=== PATIENT | male | born 1980 | race Caucasian/White ===

== ENCOUNTER 2017-01-03 08:15 | Emergency (ER) | END 2017-01-03 08:53 | disposition home or self-care (01) | DX: B02.9 Zoster without complications (principal) ==

== ENCOUNTER 2017-01-20 06:16 | Emergency (ER) | payer MEDICAID ==
[~2017-01-20] VITALS: Wt 71.0 kg
[~2017-01-20 06:16] MED LIST: ACYC800T57 PO; BEN25 PO; HYDR-906 PO; IBUP-1542 PO
[2017-01-20] MEDS ORDERED: TRAM50TA2 PO (07:05)
[2017-01-20] MEDS ORDERED: HYDR-842 PO (07:05)
--- NOTE | 2017-01-20 07:37 | ERD ---
ER Documentation Chief Complaint Date/Time DATE: 01/20/17 TIME: 07:35 Chief Complaint SHINGLES ON LEFT SIDE OF BODY HPI 36-year-old male recently diagnosed with shingles about 2 weeks ago comes emergency department with continuing pain as well as itching. Patient states that he did complete the medications however the area is very sensitive when he wears clothing, there is also some itching associated. He denies any fevers, chills or drainage. ROS All systems reviewed and are negative except as per history of present illness. Medications Home Meds Active Scripts Tramadol HCl (Tramadol HCl) 50 Mg Tablet, 50 MG PO Q4 Y for PAIN, #20 TAB Prov:SHAYNA SERRATO PA-C 01/20/17 Hydroxyzine Hcl* (Atarax*) 25 Mg Tab, 25 MG PO Q6H Y for ITCHING, #30 TAB Prov:SHAYNA SERRATO PA-C 01/20/17 Ibuprofen* (Motrin*) 600 Mg Tab, 600 MG PO Q6, #30 TAB Prov:JAYJAY FELIX 01/03/17 Diphenhydramine Hcl* (Benadryl*) 25 Mg Cap, 25 MG PO Q6, #30 CAP Prov:JAYJAY FELIX 01/03/17 Hydrocodone/Acetaminophen ([place] 5-325 Tablet) 1 Each Tablet, 1 TAB PO Q6H Y for PAIN, #20 TAB Prov:JAYJAY FELIX 01/03/17 Acyclovir* (Zovirax*) 800 Mg Tablet, 800 MG PO 5 TIMES DAILY for 7 Days, TAB Prov:JAYJAY FELIX 01/03/17 Allergies Allergies: Coded Allergies: No Known Allergy (Unverified , 01/03/17) PMhx/Soc Medical and Surgical Hx: pt denies Medical Hx, pt denies Surgical Hx Hx Alcohol Use: No Hx Substance Use: No Hx Tobacco Use: No Physical Exam Vitals Vital Signs Date Time Temp Pulse Resp B/P Pulse Ox O2 Delivery O2 Flow Rate FiO2 01/20/17 06:33 98.0 78 18 146/102 98 Physical Exam General: Well-developed, well-nourished. The patient appears in no acute distress. HEENT: Head is normocephalic, atraumatic. No scleral icterus. Neck: Supple. Nontender. Lungs: Clear to auscultation. Normal air movement. Heart: Regular rate and rhythm. S1 and S2 are normal. No murmurs, gallops, or rubs. Abdomen: Nondistended. Extremities: No clubbing or cyanosis. Moving extremities x 4. No weakness. Neurologic: Alert and oriented 3. No focal deficits. Normal speech and gait. Skin: Linear rash that is across the chest on the left side, it is flattened, crusted over, with scabs, also on the left side of the back posteriorly. It does not cross midline. No drainage, no surrounding erythema. Areas dry. Procedures/MDM 36-year-old male presents with shingles, it is been approximately 2 weeks, consistent with his rash and normal presentation. There is no secondary cellulitis, no signs of acute coronary syndrome, dissection or pulmonary embolus. He was counseled that this pain could last up to 3 months or longer, this is normal. He does not show any signs of infection, and he was reassured that this is within normal limits. He will be given medication for symptomatic control. Departure Diagnosis: Primary Impression: Shingles Condition: Good Patient Instructions: Shingles (Herpes Zoster) Referrals: [facility] YOU HAVE RECEIVED A MEDICAL SCREENING EXAM AND THE RESULTS INDICATE THAT YOU DO NOT HAVE A CONDITION THAT REQUIRES URGENT TREATMENT IN THE EMERGENCY DEPARTMENT. FURTHER EVALUATION AND TREATMENT OF YOUR CONDITION CAN WAIT UNTIL YOU ARE SEEN IN YOUR DOCTORS OFFICE WITHIN THE NEXT 1-2 DAYS. IT IS YOUR RESPONSIBILITY TO MAKE AN APPOINTMENT FOR FOLOW-UP CARE. IF YOU HAVE A PRIMARY DOCTOR --you should call your primary doctor and schedule an appointment IF YOU DO NOT HAVE A PRIMARY DOCTOR YOU CAN CALL OUR PHYSICIAN REFERRAL HOTLINE AT IF YOU CAN NOT AFFORD TO SEE A PHYSICIAN YOU CAN CHOSE FROM THE FOLLOWING [facility] [address] [facility]. [facility] [address] [facility]. [facility] [address] [facility] [facility] [address] [facility]. [facility] [address] [facility]. [facility]. [address] [facility]. [facility] YOU HAVE RECEIVED A MEDICAL SCREENING EXAM AND THE RESULTS INDICATE THAT YOU DO NOT HAVE A CONDITION THAT REQUIRES URGENT TREATMENT IN THE EMERGENCY DEPARTMENT. FURTHER EVALUATION AND TREATMENT OF YOUR CONDITION CAN WAIT UNTIL YOU ARE SEEN IN YOUR DOCTORS OFFICE WITHIN THE NEXT 1-2 DAYS. IT IS YOUR RESPONSIBILITY TO MAKE AN APPOINTMENT FOR FOLOW-UP CARE. IF YOU HAVE A PRIMARY DOCTOR --you should call your primary doctor and schedule and appointment IF YOU DO NOT HAVE A PRIMARY DOCTOR YOU CAN CALL OUR PHYSICIAN REFERRAL HOTLINE AT . IF YOU CAN NOT AFFORD TO SEE A PHYSICIAN YOU CAN CHOSE FROM THE FOLLOWING [facility] INSTITUTIONS: [facility] [address] [place] [address] [facility] [address] [place] [address] [facility] [address] [place] [address] [facility] SHAYNA SERRATO PA-C Jan 20, 2017 07:37
== END 2017-01-20 07:37 | disposition home or self-care (01) ==
LOC: FTE 06:16
DX: B02.9 Zoster without complications (principal)
CPT/HCPCS: 99284